=== PATIENT | male | born 1945 | race Caucasian/White ===

== ENCOUNTER 2017-07-28 05:51 | Day surgery (SDC) | payer OTHER ==
[~2017-07-28] VITALS: Ht 170.2 cm; Wt 86.2 kg
[2017-07-28] MEDS ORDERED: INSU10SU6 SUBQ (06:53)
[2017-07-28] MEDS ORDERED: FURO-570 PO (06:57)
[2017-07-28] MEDS ORDERED: METO50TE2 PO (06:57)
[2017-07-28] MEDS ORDERED: ATOR40TA PO (06:57)
[2017-07-28] MEDS ORDERED: PANT40EC PO (06:57)
[2017-07-28] MEDS ORDERED: INSU100S45 SUBQ (06:57)
[2017-07-28] MEDS ORDERED: fentaNYL 0.05 MG/ML VIAL ONE (07:32)
[2017-07-28] MEDS ORDERED: MIDAZOLAM 2 MG/2 ML VIAL ONE (07:32)
[2017-07-28] MEDS ORDERED: BLOOD GLUCOSE MONITORING 1 DEV DEV FS ONE (07:40)
[2017-07-28] MEDS ORDERED: LIDOCAINE VISCOUS 2% 20 ML UDC ONE (07:51)
== END 2017-07-28 08:30 | disposition home or self-care (01) ==
LOC: MDS 05:51 → MMU 05:53 → MDS 08:30
PROVIDERS: ATTEND Internal Medicine Gastroenterology
DX: R93.5 Abnormal findings on diagnostic imaging of other abdominal regions, including retroperitoneum (principal); E78.00 Pure hypercholesterolemia, unspecified; I10 Essential (primary) hypertension; I63.9 Cerebral infarction, unspecified
CPT/HCPCS: 82948; J2250; J3010